=== PATIENT | female | born 1985 | race Caucasian/White ===

== ENCOUNTER 2017-04-22 17:47 | Emergency (ER) | payer MEDICAID ==
[2017-04-22] MEDS ORDERED: Diph,Pert(Acell),Tet Vac 0.5 ML SYR IM ONE (18:53)
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
[2017-04-22] MEDS ORDERED: AMOXICILLIN/POTASSIUM CLAV 875MG/125MG TABLET PO ONE (19:02)
[2017-04-22 19:08] LABS: URINE APPEARANCE CLEAR; URINE BILIRUBIN NEGATIVE (NEGATIVE); URINE BLOOD NEGATIVE (NEGATIVE); URINE COLOR YELLOW; URINE GLUCOSE (UA) NEGATIVE (NEGATIVE); URINE KETONE NEGATIVE (NEGATIVE); URINE LEUKOCYTE ESTERASE NEGATIVE (NEGATIVE); URINE NITRITE NEGATIVE (NEGATIVE); URINE PROTEIN NEGATIVE (NEGATIVE); URINE UROBILINOGEN 0.2 E.U./dL (0.20 - 1.00)
[2017-04-22 19:10] LABS: HCG,QUALITATIVE URINE NEGATIVE (NEGATIVE)
== END 2017-04-22 19:34 | disposition home or self-care (01) ==
LOC: ER 17:47
DX: S70.312A Abrasion, left thigh, initial encounter (principal); S70.12XA Contusion of left thigh, initial encounter; R05 Cough; R30.0 Dysuria; W54.0XXA Bitten by dog, initial encounter
CPT/HCPCS: 81003; 81025; 90715; 96372; 99283

== ENCOUNTER 2019-04-14 17:27 | Emergency (ER) | payer MEDICAID ==
[2019-04-14] MEDS ORDERED: MORPHINE SULFATE 5 MG/ML VIAL IVP ONE (17:38)
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
[2019-04-14 17:55] LABS: ABSOLUTE NEUTROPHIL COUNT 6.83; BASO % 0.4 % (0-6); EOS % 2.3 % (0-6); GRAN % 59.1 % (47-80); HEMATOCRIT 44.4 % (35.0-47.0); HEMOGLOBIN 14.7 gm/dl (11.6-16.0); LYMPH % 29.3 % (16-45); MEAN CELL VOLUME 86.5 fl (81-97); MEAN CORPUSCULAR HEMOGLOBIN 28.7 pg (27-33); MEAN CORPUSCULAR HGB CONC 33.1 g/dl (32-36); MEAN PLATELET VOLUME 11.2 fl (7.4-10.4); MONO % 8.9 % (0-9); PLATELET COUNT 493 K/uL (130-400); RED BLOOD COUNT 5.13 M/uL (3.80-5.40); RED CELL DISTRIBUTION WIDTH 12.8 % (11.5-14.5); WHITE BLOOD COUNT W/O DIFF 11.6 K/uL (4.2-12.2)
[2019-04-14 18:08] LABS: BLOOD UREA NITROGEN 11 mg/dL (6-20); PARTIAL THROMBOPLASTIN TIME 29.4 SECONDS (24.5-39.1); PROTHROMBIN TIME (PATIENT) 10.4 SECONDS (9.5-12.1)
[2019-04-14 18:09] LABS: CREATININE 0.7 mg/dL (0.5-0.9); EST GLOMERULAR FILTRATION RATE > 60 mL/min; TOTAL PROTEIN 7.9 g/dL (6.6-8.7)
[2019-04-14] MEDS ORDERED: LORAZEPAM 2 MG/ML VIAL IV ONE (18:09)
[2019-04-14 18:11] LABS: GLUCOSE,RANDOM 110 mg/dL (74-109)
[2019-04-14 18:14] LABS: ALB/GLOB RATIO 1.8 (1.1-1.8); ALBUMIN 5.1 g/dL (4.0-5.0); ALKALINE PHOSPHATASE 80 U/L (35-104); ALT/SGPT 13 U/L (<33); AST/SGOT 14 U/L (10.0-35.0)
[2019-04-14] MEDS ORDERED: ASPIRIN 81 MG CHEWABLE TABLET PO ONE (19:32)
== END 2019-04-14 20:20 | disposition short-term general hospital (02) ==
LOC: ER 17:27
DX: R07.2 Precordial pain (principal); R06.00 Dyspnea, unspecified; R06.02 Shortness of breath; F17.210 Nicotine dependence, cigarettes, uncomplicated
CPT/HCPCS: 71046; 80053; 83880; 84484; 84703; 85025; 85379; 85610; 85730; 93005; 93010; 96374; 99285